=== PATIENT | female | born 1985 | race Caucasian/White ===

== ENCOUNTER 2019-11-10 10:55 | Emergency (ER) | payer SELFPAY ==
[~2019-11-10] VITALS: Ht 162.6 cm; Wt 70.0 kg
[2019-11-10] MEDS ORDERED: normal saline 1000ML IV soln IVB ONE (12:20)
[2019-11-10] MEDS ORDERED: propofol 10mg/ml 20ml vial IV ONE (12:20)
--- NOTE | 2019-11-10 12:48 | NUR ---
Primary RN signed for Pt. R/T arm injury.
[2019-11-10] MEDS ORDERED: HYDR-4384 PO (13:21)
[2019-11-10 13:47] VITALS: BP 118/62
== END 2019-11-10 13:50 | disposition home or self-care (01) ==
LOC: ER 10:56
DX: S53.124A Posterior dislocation of right ulnohumeral joint, initial encounter (principal); Z79.899 Other long term (current) drug therapy; W18.39XA Other fall on same level, initial encounter; Y93.89 Activity, other specified; Y92.89 Other specified places as the place of occurrence of the external cause; Y99.8 Other external cause status
CPT/HCPCS: 24600; 73070; 99285; J2704; J7030

== ENCOUNTER 2019-12-03 15:24 | Outpatient (CLI) | payer OTHER | END 2019-12-03 16:00 | disposition home or self-care (01) | LOC: ORTHO 15:24 | PROVIDERS: ATTEND Orthopaedic Surgery | DX: S53.124A Posterior dislocation of right ulnohumeral joint, initial encounter (principal); W18.39XA Other fall on same level, initial encounter; Y93.89 Activity, other specified; Y92.89 Other specified places as the place of occurrence of the external cause; Y99.8 Other external cause status | CPT/HCPCS: 73080; G0463 ==

== ENCOUNTER 2019-12-24 15:14 | Outpatient (CLI) | payer OTHER | END 2019-12-24 16:15 | disposition home or self-care (01) | LOC: ORTHO 15:14 | PROVIDERS: ATTEND Orthopaedic Surgery | DX: G43.909 Migraine, unspecified, not intractable, without status migrainosus (principal) | CPT/HCPCS: G0463 ==